=== PATIENT | male | born 1970 | race Caucasian/White ===

== ENCOUNTER 2019-03-02 09:23 | Emergency (ER) | payer SELFPAY ==
[2019-03-02 09:26] VITALS: BP 119/70; PULSE 84; RESP 18; TEMP 36.6; O2SAT 98; BMI 22.7
--- NOTE | 2019-03-02 09:34 | ED_ITS ---
Entered by Lenora Larsen, acting as scribe for Víctor Navarrete DO HPI - Extremity Problem General: Chief complaint: Extremity Problem,Nontraumatic Stated complaint: Prior Surgery not healing Time Seen by Provider: 03/02/19 09:36 Source: patient Mode of arrival: ambulatory Limitations: no limitations History of Present Illness: HPI Narrative: 48 yo m came to the er pov for extremity problem, onset was last December. Pt states that they had surgery and it is showing some exposed tendon. Denies fever sweats or chills he is not been back to the surgeon who originally did the wrist surgery in [place] Onset (ago): month(s) Pain Consistency: other (no pain) Location: upper extremity (left wrist) Radiation: none Relieving factors: nothing Associated symptoms: Deny chest pain, fever(s) or rash Review of Systems Const: Denies: fever ENMT: Denies: throat pain, ear pain, nasal discharge or nasal congestion Card: Denies: chest pain Resp: Denies: shortness of breath, productive cough or non-productive cough GI: Denies: abdominal pain, nausea, vomiting, vomiting blood, coffee grounds in vomit, diarrhea, constipation, bloating, blood in stool or black tarry stool : Denies: flank pain, painful urination, urinary frequency or urinary urgency Skin/Breast: Denies: rash PFSH ED 2 PFSH: Statuses (acute, chronic, etc) shown below reflect problem list status as previously entered and may not be historically accurate Social History Smoking and tobacco status: current every day smoker Physical Exam Const: COMMON NORMALS: no apparent distress GENERAL APPEARANCE: cooperative and comfortable ORIENTATION/CONSCIOUSNESS: Yes awake, Yes oriented to person, Yes oriented to place and Yes oriented to time HENMT: COMMON NORMALS: normocephalic, head/scalp atraumatic, hearing grossly normal bilaterally, external ears normal, EAC's normal, TM's normal bilaterally, nasal mucous membranes and turbinates normal, moist oral mucous membranes and oropharynx normal HEAD & SCALP: normocephalic and atraumatic NOSE: nasal mucous membranes and turbinates normal EXTERNAL EAR: Yes external ears normal EXTERNAL AUDITORY CANAL: EAC's normal TYMPANIC MEMBRANE: TM's normal bilaterally Eye: COMMON NORMALS: PERRL, EOMs intact bilaterally, conjunctivae normal and no scleral icterus CONJUNCTIVA: Yes conjunctivae normal PUPIL: Yes PERRL Neck/C-Spine: COMMON NORMALS: full ROM, no lymphadenopathy, supple and no JVD Lymph: LYMPHATIC: no lymphadenopathy noted and no lymphedema noted Resp: COMMON NORMALS: normal respiratory effort, no retractions, no use of accessory muscles and clear to auscultation bilaterally AUSCULTATION: clear to auscultation bilaterally Cardio: COMMON NORMALS: no JVD, regular rate, regular rhythm and no murmurs RATE: regular rate RHYTHM: regular rhythm Extremity: COMMON NORMALS: normal to inspection, normal capillary refill, no clubbing, cyanosis or edema, no calf tenderness and no pedal edema NARRATIVE EXTREMITY EXAM: Flexor tendons exposed about 3 cm x 1 cm no evidence of infection there is scar tissue around the open area the edges are contracted. There is no purulent drainage no induration. Neuro: SENSORIUM/ORIENTATION: Yes oriented to person, Yes oriented to place and Yes oriented to time Skin: COMMON NORMALS: no rashes or lesions noted GENERAL SKIN EXAM: no rashes or lesions noted Course Vital Signs: Vital signs: Vital Signs Temperature 97.9 F 03/02/19 09:26 Pulse Rate 84 03/02/19 09:26 Respiratory Rate 18 03/02/19 09:26 Blood Pressure 119/70 03/02/19 09:26 Pulse Oximetry 98 03/02/19 09:26 Discharge Plan Discharge Patient Disposition: Home, Self-Care Clinical Impression: Dehiscence of operative wound Qualifiers: Encounter type: sequela Qualified Code(s): T81.31XS - Disruption of external operation (surgical) wound, not elsewhere classified, sequela Condition: Stable Prescriptions: New mupirocin 2 % ointment 1 applic TOPICAL BID Qty: 30 RF: 0 No Action No Known Home Medications RF: 0 Discharge Orders: Discharge Order (Routine); Ordered 03/02/19 Ordered By: Víctor Navarrete Referrals: [facility], [Staff Physician] - 03/07/19 10:00 am (L wrist wound dehiscence) Discharge Diet: Usual diet Discharge Activity: Resume usual activity Discharge Date/Time: 03/02/19 09:57 Coding Level of Care Code ED Kitchen Steward for Chg Fwd Exam Problem Focused The documentation recorded by the Chava liang Stephanie Lyn, accurately reflects the service I personally performed and the decisions made by me, Víctor Navarrete DO Mar 02, 2019 09:23
--- NOTE | 2019-03-02 15:13 | DCPLANNER ---
trust manager was asked to schedule a follow up appointment for patient with Wound Care. trust manager called Wound Care, spoke with Emilia, a follow up appointment was scheduled for Thursday, March 07, 2019 at 10:00 with Sola. trust manager informed patient of the scheduled appointment.
--- NOTE | 2019-03-17 12:57 | DCPLANNER ---
Patient attended appointment scheduled with Wound Care.
== END 2019-03-02 09:57 | disposition home or self-care (01) ==
PROVIDERS: Emergency Provider Family Medicine
DX: T81.31XA Disruption of external operation (surgical) wound, not elsewhere classified, initial encounter (principal); F17.210 Nicotine dependence, cigarettes, uncomplicated; Y83.8 Other surgical procedures as the cause of abnormal reaction of the patient, or of later complication, without mention of misadventure at the time of the procedure
CPT/HCPCS: 99281; A6446

== ENCOUNTER 2019-03-14 09:55 | Outpatient (RCR) | payer SELFPAY | END 2019-03-25 23:59 | disposition home or self-care (01) | LOC: WOUND 09:55 | PROVIDERS: Visit Provider Nurse Practitioner Family | DX: T81.31XA Disruption of external operation (surgical) wound, not elsewhere classified, initial encounter (principal); Y83.8 Other surgical procedures as the cause of abnormal reaction of the patient, or of later complication, without mention of misadventure at the time of the procedure; I96 Gangrene, not elsewhere classified | CPT/HCPCS: 87070; 87077; 87186; 87205; G0463 ==

== ENCOUNTER 2019-04-11 09:05 | Outpatient (RCR) | payer SELFPAY | END 2019-04-23 23:59 | disposition home or self-care (01) | LOC: WOUND 09:05 | PROVIDERS: Visit Provider Nurse Practitioner Family | DX: T81.31XA Disruption of external operation (surgical) wound, not elsewhere classified, initial encounter (principal); Y83.8 Other surgical procedures as the cause of abnormal reaction of the patient, or of later complication, without mention of misadventure at the time of the procedure | CPT/HCPCS: 99214; 99215; G0463 ==

== ENCOUNTER 2019-12-26 09:22 | Emergency (ER) | payer SELFPAY ==
[2019-12-26 09:26] VITALS: BP 113/68; PULSE 84; RESP 16; TEMP 36.8; O2SAT 97; BMI 22.1
[2019-12-26 09:29] VITALS: PULSE 80; RESP 16; O2SAT 96
--- NOTE | 2019-12-26 11:04 | ED_ITS ---
HPI - Wound/Laceration General: Chief Complaint: Wound/Laceration Stated Complaint: Spider Bite on Right Hand Time Seen by Provider: 12/26/19 09:33 History of Present Illness: HPI narrative: Patient is a well-appearing nontoxic 49-year-old male with no significant medical history. Patient does have a past history of IV drug use. Patient states that he started to have what appeared like a spider bite on his right dorsal aspect of his hand 3 days ago. Patient states that it is now draining and red. Patient denies pain, fever, nausea, vomiting or any other concerning symptoms. Associated symptoms: Denies chills or fever(s) Review of Systems General: Reports: 10 or more systems reviewed and unremarkable except in HPI and below Const: Denies: fever(s), chills, body aches or fatigue Skin/Breast: Reports: new lesions (Abscess to right hand) PFSH ED PFSH: Social History Smoking and tobacco status: current every day smoker Physical Exam Narrative: EXAM NARRATIVE: Patient is overall well-appearing nontoxic. Patient does have an open draining lesion on his right dorsal aspect of his mid hand. Patient does not have any tendon involvement or pain on palpation or movement of digits. Patient denies fever, nausea, vomiting or any other co ncerning systemic involvement. Const: COMMON NORMALS: no acute distress, patient oriented x3, no limitations, alert and well nourished GENERAL APPEARANCE: cooperative, comfortable and well hydrated ORIENTATION/CONSCIOUSNESS: Yes awake HENMT: COMMON NORMALS: normocephalic, atraumatic and Normal external nose present HEAD & SCALP: normal to inspection, normocephalic and atraumatic FACE & SINUS: normal facial exam NOSE: Normal external nose present MOUTH: Normal oral and palatal mucosa present TEETH & GINGIVA: Yes caries THROAT: posterior oropharynx normal Eye: COMMON NORMALS: Equal, round and reactive pupils present and EOMs intact bilaterally GENERAL EYE: appearance normal, both eyes and all related structures ALIGNMENT: Yes alignment normal PERIORBITAL: periorbital findings normal PUPIL: Yes Equal, round and reactive pupils present Neck/C-Spine: COMMON NORMALS: full ROM, no lymphadenopathy, no meningeal signs and Thyroid normal GENERAL: Yes normal visual inspection THYROID: Thyroid normal CERVICAL SPINE: Yes cervical ROM normal Chest: COMMONS NORMALS: normal inspection of the chest CHEST: Yes Symmetrical chest wall rise Resp: COMMON NORMALS: normal respiratory effort, No use of accessory muscles and clear to auscultation bilaterally EFFORT & INSPECTION: Yes able to speak in complete sentences AUSCULTATION: clear to auscultation bilaterally Cardio: COMMON NORMALS: regular rate, regular rhythm and Peripheral pulses 2+ throughout RATE: regular rate RHYTHM: regular rhythm PERIPHERAL PULSES: Peripheral pulses 2+ throughout GI: COMMON NORMALS: Normal to inspection, nondistended, normoactive bowel sounds present Back/Pelvis: THORACIC SPINE/UPPER BACK: Yes normal to inspection and Yes thoracic ROM normal LUMBAR SPINE/LOWER BACK: Yes normal to inspection and Yes lumbar ROM normal Extremity: COMMON NORMALS: full ROM GENERAL: Yes normal exam except as noted Neuro: COMMON NORMALS: patient oriented x3 SENSORIUM/ORIENTATION: Yes alert MENINGEAL SIGNS: Yes no meningeal signs CRANIAL NERVES: Yes CN normal except as noted SPEECH: speech normal GAIT: Yes Normal gait present Psych: COMMON NORMALS: mental status grossly normal, Normal thought process present and speech normal APPEARANCE: Yes grossly normal ATTITUDE: Yes calm ACTIVITY/MOTOR BEHAVIOR: Yes appropriate eye contact SPEECH: Yes normal speech THOUGHT PROCESS: Normal thought process present Skin: SKIN IMAGES (MALE): 1. 1 cm ulceration with some surrounding inflammation and erythema with purulent discharge. I am able to continue to express a small amount of pus from open lesion. It is nontender and warm to touch. There is no pain with range of motion. Patient is neurovascularly intact distal to lesion. Capillary refills less than 3 seconds. Sensation is intact. Motor is intact. Course Vital Signs: Vital signs: Vital Signs Temperature 98.3 F 12/26/19 09:26 Pulse Rate 84 12/26/19 11:27 Respiratory Rate 18 12/26/19 11:27 Blood Pressure 102/69 12/26/19 11:27 Pulse Oximetry 99 12/26/19 11:27 Discharge Plan Discharge Patient Disposition: Home Clinical Impression: Abscess Condition: Stable Prescriptions: New Bactrim DS 800-160 mg tablet 1 tab PO BID 7 Days Qty: 14 RF: 0 Discharge Orders: Discharge Order (Routine); Ordered 12/26/19 Ordered By: Tashia Ramon Referrals: Ed Valenzuela MD [Physician] - 12/29/19 1:00 pm Discharge Diet: Regular Discharge Activity: Resume usual activity Patient Instructions: Abscess (ED), Skin Abscess Activity Restrictions/Additional Instructions: Keep your wound clean and dry wash with soap and water twice daily. Take antibiotics as prescribed. Return to the emergency room if you have increased swelling, fever, nausea, vomiting or any other concerning symptoms. You may take Tylenol and ibuprofen for any pain. Do not exceed 3000 mg in a 24- hour period. Discharge Date/Time: 12/26/19 11:28 Coding Level of Care Code ED Retirement Administrator for Alexander Junior Exam Comprehensive
--- NOTE | 2019-12-26 11:13 | DCPLANNER ---
manager channel was asked to speak with patient about getting established with a primary care physician. manager channel spoke with patient, he stated that he did not have a physician, but would like one. manager channel called [facility], spoke with Jyothi, a follow up appointment was scheduled for , December 29, 2019 at 1:00 with . manager channel gave patient the appointment information.
--- NOTE | 2019-12-26 11:20 | PC.NURSE ---
Neomycin order not given, entered in error by provider. Provider gave verbal order to cancel the medication and do not give.
[2019-12-26] MEDS: tetanus-dipt-pertussis 0.5 mL SDV IM (11:21)
[2019-12-26 11:27] VITALS: BP 102/69; PULSE 84; RESP 18; O2SAT 99
--- NOTE | 2020-02-24 11:59 | DCPLANNER ---
Patient had a follow up appointment scheduled for 01.08.20 with [facility] family medicine - patient did not attend appointment.
== END 2019-12-26 11:28 | disposition home or self-care (01) ==
PROVIDERS: Emergency Provider Nurse Practitioner Family
DX: L02.511 Cutaneous abscess of right hand (principal); F17.210 Nicotine dependence, cigarettes, uncomplicated; Z23 Encounter for immunization
CPT/HCPCS: 12345; 90471; 90715; 99282

== ENCOUNTER 2024-11-05 19:02 | Emergency (ER) | payer SELFPAY ==
[2024-11-05 19:14] VITALS: BP 106/68; PULSE 85; RESP 14; TEMP 36.7; O2SAT 100; BMI 20.7
--- NOTE | 2024-11-05 19:21 | XRR_ITS ---
PROCEDURE INFORMATION: Exam: XR Right Hand Exam date and time: 11/05/2024 7:26 PM Age: 54 years old Clinical indication: Pain; Hand; Right; Additional info: RT hand pain post fall x 3 days ago TECHNIQUE: Imaging protocol: Radiologic exam of the right hand. Views: 3 or more views. COMPARISON: No relevant prior studies available. FINDINGS: Bones/joints: Oblique mildly displaced fracture of the 4th metacarpal midshaft. Soft tissues: Soft tissues are mildly swollen about the medial hand. XR/XR hand RT min 3V* [id number] IMPRESSION: Oblique mildly displaced fracture of the 4th metacarpal midshaft.
--- NOTE | 2024-11-05 20:06 | ED_ITS ---
HPI - Extremity Problem General: Chief complaint: Extremity Injury, Upper Stated complaint: fell and hurt rt hand Time Seen by Provider: 11/05/24 19:23 History of Present Illness: Patient is a 54-year-old male who presents with right hand pain after a fall that occurred on Thursday night (The patient reports he was walking to a store from his neighbor's house when he tripped over something. He attempted to catch himself during the fall, which resulted in injury to his hand. The patient notes tenderness in the hand, particularly in one specific area. He denies wrist pain. X-ray imaging has been obtained and is pending review. Related Data Previous Rx's ?Medication ?Instructions ?Recorded hydrocodone 5 mg-acetaminophen 325 1 tab PO Q8H PRN pa in #7 tabs 11/05/24 mg tablet Allergies Allergy/AdvReac Type Severity Reaction Status Date / Time No Known Allergies Allergy Verified 11/05/24 19:17 PFSH ED PFSH: Social History Smoking and tobacco/nicotine status: current every day tobacco/nicotine user Physical Exam Const: COMMON NORMALS: no acute distress GENERAL APPEARANCE: cooperative; not ill appearing Eye: COMMON NORMALS: Equal, round and reactive pupils present and EOMs intact bilaterally PUPIL: Yes Equal, round and reactive pupils present Chest: CHEST: Yes Symmetrical chest wall rise Resp: COMMON NORMALS: normal respiratory effort and No use of accessory muscles Cardio: COMMON NORMALS: regular rhythm RHYTHM: regular rhythm Extremity: NARRATIVE EXTREMITY EXAM: Examination of right hand reveals tenderness to the hand, proximal to the MCPs, mainly over the 3rd and 4th rays. No significant rotational deformity. No skin tenting Course Vital Signs: Vital signs: Vital Signs Temperature 98.0 F 11/05/24 19:14 Pulse Rate 85 11/05/24 19:14 Respiratory Rate 14 11/05/24 19:14 Blood Pressure 106/68 11/05/24 19:14 Pulse Oximetry 100 11/05/24 19:14 Oxygen Delivery Me thod Room Air 11/05/24 19:14 MDM - Extremity (Nontraumatic) Medical Decision Making X-ray reveals a diagonal fourth metacarpal shaft fracture without significant displacement. He will be placed in an ulnar gutter splint immobilizing digits 3 through 5 past the proximal interphalangeal joints on that side. Orthopedic follow-up. Lab Data Radiology Impressions Hand X-Ray 11/05/24 19:21 IMPRESSION: Oblique mildly displaced fracture of the 4th metacarpal midshaft. All radiology interpretation(s) finalized by discharge Discharge Plan Discharge Patient Disposition: Home Clinical Impression: Fracture of fourth metacarpal bone Condition: Stable Prescriptions: New hydrocodone-acetaminophen 5-325 mg tablet 1 tab PO Q8H PRN (Reason: pain) Qty: 7 0RF Discharge Orders: Discharge ED (Routine); Ordered 11/05/24 Ordered By: Lamont Lugo Referrals: Chepe Sepulveda MD [Physician, Orthopedics] - 4-7 days Patient Instructions: Hand Fracture (ED), Opioid Safety, Pain Management, Patient Portal & Anais Instructions Activity Restrictions/Additional Instructions: Stay in your splint until seen by orthopedics. This is your cast. Call Thursday morning to the number above for a follow-up appointment. You will need repeat x-rays, and casting at that point. Ice for pain. Use pain medication for severe pain. Return for problems. Print Language: Bahamian Coding Level of Care Code ED Alliance Director for Alexander Junior
[2024-11-05] MEDS: oxyCODONE-APAP 5-325 mg Tablet 2 TAB PO (20:28)
== END 2024-11-05 20:27 | disposition home or self-care (01) ==
PROVIDERS: Emergency Provider Emergency Medicine
DX: S62.324A Displaced fracture of shaft of fourth metacarpal bone, right hand, initial encounter for closed fracture (principal); W01.0XXA Fall on same level from slipping, tripping and stumbling without subsequent striking against object, initial encounter
CPT/HCPCS: 29125; 73130; 99283; J9999

== ENCOUNTER → 2024-11-11 08:08 | Outpatient (BNVA) | payer SELFPAY | PROVIDERS: Visit Provider Orthopaedic Surgery | DX: S62.394A Other fracture of fourth metacarpal bone, right hand, initial encounter for closed fracture (principal); W19.XXXA Unspecified fall, initial encounter | CPT/HCPCS: 73130 ==

== ENCOUNTER → 2024-11-24 14:02 | Outpatient (BNVA) | payer SELFPAY | PROVIDERS: Visit Provider Orthopaedic Surgery | DX: M79.641 Pain in right hand (principal); S62.354D Nondisplaced fracture of shaft of fourth metacarpal bone, right hand, subsequent encounter for fracture with routine healing; X58.XXXD Exposure to other specified factors, subsequent encounter | CPT/HCPCS: 73130 ==

== ENCOUNTER → 2025-01-02 15:02 | Outpatient (BNVA) | payer OTHER, SELFPAY | PROVIDERS: Visit Provider Psychiatry & Neurology Psychiatry | DX: F41.8 Other specified anxiety disorders (principal) | CPT/HCPCS: 80061; 83036 ==

== ENCOUNTER → 2025-01-03 11:41 | Outpatient (BNVA) | payer SELFPAY | PROVIDERS: Visit Provider Orthopaedic Surgery | DX: S62.354D Nondisplaced fracture of shaft of fourth metacarpal bone, right hand, subsequent encounter for fracture with routine healing (principal); X58.XXXD Exposure to other specified factors, subsequent encounter; Z87.81 Personal history of (healed) traumatic fracture | CPT/HCPCS: 73130 ==